=== PATIENT | female | born 1960 | race Caucasian/White ===

== ENCOUNTER → 2020-05-02 | Outpatient (CLI) | payer BC ==
--- NOTE | 2020-05-06 17:13 | RAD ---
BILATERAL SCREENING MAMMOGRAM, 3-D History: Routine screening. Comparison: 04/28/2017. Technique: MLO and CC digital tomosynthesis (3D) images obtained. Radiologist reviewed these images on dedicated workstation. Findings: Breast Tissue Density B : There are scattered areas of fibroglandular density. There are no dominant masses, suspicious microcalcifications, or architectural distortion. IMPRESSION: No mammographic evidence of malignancy. Recommend routine screening. BI-RADS category 1: Negative. The images were reviewed with computer-aided detection. Patient information is entered into reminder system with a target due date for the next screening mammogram. Mammography is the most sensitive method for finding small breast cancers, but it does not detect them all and is not a substitute for careful clinical examination. A negative mammogram does not negate a clinically suspicious finding and should not result in delay in biopsying a clinically suspicious abnormality. "Our facility is accredited by the [employer] Mammography Program." Electronically signed by: Molina Steve MD (05/06/2020 5:10 PM) [id number]
== END | disposition home or self-care (01) ==
LOC: MAMMO 15:42
PROVIDERS: ATTEND Specialist
DX: Z12.31 Encounter for screening mammogram for malignant neoplasm of breast (principal)
CPT/HCPCS: 77063; 77067

== ENCOUNTER → 2020-05-27 | Outpatient (CLI) | payer BC ==
[~2020-05-27] MED LIST: ATOR20TA58 PO; OMEP10CA4 PO
== END | disposition home or self-care (01) ==
LOC: LAB 16:08
PROVIDERS: ATTEND Nurse Anesthetist, Certified Registered
DX: Z01.818 Encounter for other preprocedural examination (principal); Z11.59 Encounter for screening for other viral diseases; Z12.11 Encounter for screening for malignant neoplasm of colon
CPT/HCPCS: 36415; U0003

== ENCOUNTER → 2020-05-30 | Day surgery (SDC) | payer BC ==
[~2020-05-30] MED LIST changes: +IPRATRPIUM/ALBUTEROL 0.5/2.5MG 3 ML NEBU. NEB PRN; +IV RINGERS SOLUTION,LACTATED 1,000 ML IV SCH; +MIDAZOLAM HCL PF 2 MG/2 ML VIAL. IV ONE; +ONDANSETRON PF 4 MG/2 ML VIAL. IV PRN; +PROPOFOL 10,000 MCG/ML (20ML) VIAL IV ONE
[2020-05-30 13:06] VITALS: BP 134/68
--- NOTE | 2020-06-03 18:06 | PATHOLOGY ---
[facility] Accession Number: [id number] . 01 Material submitted: . PART A: esophagus - DISTAL ESOPHAGUS. Modifiers: distal PART B: cecum - CECUM POLYP PART C: sigmoid colon - SIGMOID 2 SPECIMENS 1 HOT SNARE . 01 Clinical history: . Screening . 02 Diagnosis: A. 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 . B. Colon biopsies, cecal polyp: - Tubular adenoma. . C. Colon biopsies, sigmoid colon polyps: - Tubular adenoma. - Hyperplastic polyp. . (JPM:mmolman; 06/03/2020) [facility] 06/03/2020 1638 Local . 02 Comment: Sections of the distal esophageal biopsy reveal segments of hyperplastic squamous esophageal mucosa with contiguous columnar-lined mucosa showing moderate chronic inflammation and intestinal metaplasia with goblet cells consistent with Camarena's change. There is no dysplasia or evidence of malignancy. The hyperplastic squamous mucosa shows focally increased intraepithelial eosinophils. The differential diagnosis of esophagitis with increased eosinophils includes reflux esophagitis, "pill esophagitis", and eosinophilic esophagitis. Focally, there are up to 20-30 intraepithelial eosinophils per high power field. The latter finding is suggestive of eosinophilic esophagitis. . Sections of the cecal biopsy reveal a tubular adenoma showing no high grade dysplasia or evidence of malignancy. . Sections of the sigmoid colon biopsies reveal three segments of tubular adenoma and two segments of hyperplastic polyp. There is no high grade dysplasia or evidence of malignancy. . (JPM:mml; 06/03/2020) . 02 Electronically signed: . Nakul Calixto MD, Pathologist NPI- [id number] . 01 Gross description: . A. The specimen is received in formalin, labeled "José Chuck, distal esophagus". Received are two segments of pale palma soft tissue ranging in size from 0.3 to 0.5 cm in maximum dimensions. The specimen is submitted entirely in cassette A1. . B. The specimen is received in formalin, labeled "José Chuck, cecal polyp". Received are two segments of pale palma soft tissue ranging in size from 0.3 to 0.4 cm in maximum dimensions. The specimen is submitted entirely in cassette B1. . C. The specimen is received in formalin, labeled "José Chuck, sigmoid colon polyp x2". Received are five segments of pale palma soft tissue ranging in size from 0.3 to 0.4 cm in maximum dimensions. The specimen is submitted entirely in cassette C1. (CAA; 06/02/2020) QAC/QAC 06/02/2020 1621 Local . 02 Pathologist provided ICD-10: K22.70, D12.0, D12.5 . 02 CPT . 115303, 859972, 650630 Specimen Comment: A courtesy copy of this report has been sent to [phone], [phone] Specimen Comment: [id number] Specimen Comment: Report sent to / DR VELAZQUEZ Performed at: 01 [facility] [address], [place] [id number] MD Manuel Alberts MD Phone: [phone] Performed at: 02 [facility] [address] [place], [place] [id number] MD Nakul Calixto MD Phone: [phone]
== END | disposition home or self-care (01) ==
LOC: SURG 10:14
PROVIDERS: ATTEND Internal Medicine Gastroenterology
DX: Z12.11 Encounter for screening for malignant neoplasm of colon (principal); D12.0 Benign neoplasm of cecum; D12.5 Benign neoplasm of sigmoid colon; K63.89 Other specified diseases of intestine; K21.0 Gastro-esophageal reflux disease with esophagitis; K44.9 Diaphragmatic hernia without obstruction or gangrene; K22.2 Esophageal obstruction; Q39.9 Congenital malformation of esophagus, unspecified; E78.00 Pure hypercholesterolemia, unspecified; K22.8 Other specified diseases of esophagus; J45.909 Unspecified asthma, uncomplicated; F40.240 Claustrophobia; Z90.49 Acquired absence of other specified parts of digestive tract; Z79.899 Other long term (current) drug therapy; Z98.890 Other specified postprocedural states; Z90.710 Acquired absence of both cervix and uterus; Z88.8 Allergy status to other drugs, medicaments and biological substances
CPT/HCPCS: 43239; 45380; 45381; 45385; 88305; J2704; J7120

== ENCOUNTER 2021-02-22 13:42 | Emergency (ER) | payer BC ==
[~2021-02-22] VITALS: Ht 160 cm; Wt 95.0 kg
[2021-02-22 13:42] VITALS: BP 138/93
[~2021-02-22 13:42] MED LIST changes: -IPRATRPIUM/ALBUTEROL 0.5/2.5MG 3 ML NEBU. NEB PRN; -IV RINGERS SOLUTION,LACTATED 1,000 ML IV SCH; -MIDAZOLAM HCL PF 2 MG/2 ML VIAL. IV ONE; -ONDANSETRON PF 4 MG/2 ML VIAL. IV PRN; -PROPOFOL 10,000 MCG/ML (20ML) VIAL IV ONE
[2021-02-22] MEDS ORDERED: IV NORMAL SALINE 1,000ML 1,000 ML IV ONE (14:45)
[2021-02-22] MEDS ORDERED: ONDANSETRON PF 4 MG/2 ML VIAL. IVP ONE (14:45)
--- NOTE | 2021-02-22 15:12 | RAD ---
EXAM: CT Head without IV contrast CLINICAL HISTORY: dizziness COMPARISON: None. TECHNIQUE: Routine CT of the head without contrast. PQRS compliance statement - One or more of the following individualized dose reduction techniques wer e utilized for this study: 1. Automated exposure control 2. Adjustment of the mA and/or kV according to patient size 3. Use of iterative reconstruction technique FINDINGS: There is no evidence of hemorrhage, mass or extra-axial fluid collection. Son-white differentiation is maintained with no evidence of edema. There is no mass effect or shift of the intracranial structures. The ventricles, basilar cisterns and cortical sulci are normal in size and configuration for the mandeep ents stated age. The cerebellum and brainstem are unremarkable. The calvarium demonstrates no evidence of fracture or focal lesion. There is normal aeration of the visualized paranasal sinuses and mastoid air cells. The visualized portions of the orbits are normal. IMPRESSION: No evidence for acute intracranial process. Electronically signed by: Nico Reynolds MD (02/22/2021 3:09 PM) JA
--- NOTE | 2021-02-22 15:24 | RAD ---
Exam Date: 02/22/2021 2:49 PM XR CHEST 1V Indication: Reason: dizziness / Spl. Instructions: / History: FINDINGS/ IMPRESSION: Bibasilar scarring and/or atelectasis is seen. The cardiac silhouette and pulmonary vasculature are within normal limits. There is no pleural effusion or pneumothorax. Electronically signed by: Ra Mirza MD (02/22/2021 3:22 PM) [id number]
[2021-02-22 15:29] LABS: BASO # 0.1 x10^3/uL (0.0-0.2); BASO % 1 % (0-3); EOS % 0 % (0-3); HEMATOCRIT 43.2 % (36.0-47.0); HEMOGLOBIN 14.2 g/dL (12.0-15.5); LYMPH # 1.3 x10^3/uL (1.0-4.8); LYMPH % 15 % (24-48); MEAN CORPUSCULAR HEMOGLOBIN 28 pg (25-35); MEAN CORPUSCULAR HGB CONC 33 g/dL (31-37); MEAN CORPUSCULAR VOLUME 84 fL (79-100); MONO # 0.5 x10^3/uL (0.0-1.1); MONO % 5 % (0-9); NEUT # 7.1 x10^3uL (1.8-7.7); NEUT % 79 % (31-73); PLATELET COUNT 248 x10^3/uL (140-400); RED BLOOD COUNT 5.14 x10^6/uL (3.50-5.40); RED CELL DISTRIBUTION WIDTH 15.2 % (11.5-14.5)
[2021-02-22 15:41] LABS: CALCIUM 9.5 mg/dL (8.5-10.1); CREATININE 0.6 mg/dL (0.6-1.0); GFR 101.3; POTASSIUM 3.9 mmol/L (3.5-5.1)
--- NOTE | 2021-02-22 15:48 | EKG ---
[address] [address] Test Date: 2021-02-22 Test Time: 15:07:59 Pat Name: GISELE CLAUDIO Department: Room: Gender: F Medical Transcriptionist: PHILLY : 1960 Requested By: KSENIA BROOKS Order Number: [id number] Reading MD: Measurements Intervals Ayden Rate: 69 P: 52 RI: 202 QRS: 57 QRSD: 98 T: 38 QT: 384 QTc: 413 Interpretive Statements SINUS RHYTHM NORMAL ECG RI6.02 No previous ECG available for comparison
[2021-02-22 15:59] LABS: ALBUMIN 3.9 g/dL (3.4-5.0); ALBUMIN/GLOBULIN RATIO 0.9 (1.0-1.7); MAGNESIUM 2.1 mg/dL (1.8-2.4); TOTAL BILIRUBIN 0.4 mg/dL (0.2-1.0); TOTAL PROTEIN 8.3 g/dL (6.4-8.2)
[2021-02-22] MEDS ORDERED: MECL12.582 PO (17:47)
[2021-02-22] MEDS ORDERED: ONDA4TAB12 PO (17:47)
--- NOTE | 2021-02-22 17:47 | PHYS DOC ---
Past History Past Medical History: Asthma, Other Additional Past Medical Histor: vertigo Past Surgical History: Cholecystectomy, Hysterectomy Alcohol Use: None Adult General Chief Complaint Chief Complaint: DIZZY/LIGHT HEADED HPI HPI Patient is a 60-year-old female patient who presents to the ED today complaining of an episode of vertigo. Patient states she had dizziness and felt like furniture was spinning. This happened today prior to coming to the ED. She states symptoms subsided quickly. She states she has had similar symptoms a week ago. She states she also had an episode of nausea with the vertigo. Denies any vomiting. Currently denies dizziness. Review of Systems Review of Systems Constitutional: Denies fever or chills [] Eyes: Denies change in visual acuity, redness, or eye pain [] HENT: Denies nasal congestion or sore throat [] Respiratory: Denies cough or shortness of breath [] Cardiovascular: No additional information not addressed in HPI [] GI: Denies abdominal pain, nausea, vomiting, bloody stools or diarrhea [] : Denies dysuria or hematuria [] Musculoskeletal: Denies back pain or joint pain [] Integument: Denies rash or skin lesions [] Neurologic: Reports dizziness. Denies headache, focal weakness or sensory changes [] All other systems were reviewed and found to be within normal limits, except as documented in this note. Current Medications Current Medications Current Medications Medications (Trade) Dose Ordered Sig/[facility] Start Time Stop Time Status Last Admin Dose Admin Ondansetron HCl (Zofran) 4 mg 1X ONCE 02/22/21 14:45 02/22/21 14:49 DC 02/22/21 15:25 4 MG Sodium Chloride 1,000 ml @ 1,000 mls/hr 1X ONCE 02/22/21 14:45 02/22/21 15:44 DC 02/22/21 15:26 1,000 MLS/HR Allergies Allergies Allergies Coded Allergies Type Severity Reaction Last Updated Verified acetaminophen Allergy Unknown 05/26/20 Yes cephalexin Allergy Unknown 02/22/21 Yes metformin Allergy Unknown 02/22/21 Yes oxycodone Allergy Unknown 05/26/20 Yes Physical Exam Physical Exam Constitutional: Well developed, well nourished, no acute distress, non-toxic appearance. [] HENT: Normocephalic, atraumatic, bilateral external ears normal, oropharynx moist, no oral exudates, nose normal. [] Eyes: PERRLA, EOMI, conjunctiva normal, no discharge. [] Neck: Normal range of motion, no tenderness, supple, no stridor. [] Cardiovascular:Heart rate regular rhythm, no murmur [] Lungs & Thorax: Bilateral breath sounds clear to auscultation [] Abdomen: Bowel sounds normal, soft, no tenderness, no masses, no pulsatile masses. [] Skin: Warm, dry, no erythema, no rash. [] Back: No tenderness, no CVA tenderness. [] Extremities: No tenderness, no cyanosis, no clubbing, ROM intact, no edema. [] Neurologic: Alert and oriented X 3, normal motor function, normal sensory function, no focal deficits noted. Cranial nerves II through XII are intact Psychologic: Affect normal, judgement normal, mood normal. [] Current Patient Data Vital Signs Vital Signs Date Time Temp Pulse Resp B/P (MAP) Pulse Ox O2 Delivery O2 Flow Rate FiO2 02/22/21 13:42 97.9 74 16 138/93 (108) 96 Lab Results Laboratory Tests Test 02/22/21 15:09 White Blood Count 9.0 x10^3/uL (4.0-11.0) Red Blood Count 5.14 x10^6/uL (3.50-5.40) Hemoglobin 14.2 g/dL (12.0-15.5) Hematocrit 43.2 % (36.0-47.0) Mean Corpuscular Volume 84 fL (79-100) Mean Corpuscular Hemoglobin 28 pg (25-35) Mean Corpuscular Hemoglobin Concent 33 g/dL (31-37) Red Cell Distribution Width 15.2 % (11.5-14.5) H Platelet Count 248 x10^3/uL (140-400) Neutrophils (%) (Auto) 79 % (31-73) H Lymphocytes (%) (Auto) 15 % (24-48) L Monocytes (%) (Auto) 5 % (0-9) Eosinophils (%) (Auto) 0 % (0-3) Basophils (%) (Auto) 1 % (0-3) Neutrophils # (Auto) 7.1 x10^3uL (1.8-7.7) Lymphocytes # (Auto) 1.3 x10^3/uL (1.0-4.8) Monocytes # (Auto) 0.5 x10^3/uL (0.0-1.1) Eosinophils # (Auto) 0.0 x10^3/uL (0.0-0.7) Basophils # (Auto) 0.1 x10^3/uL (0.0-0.2) Sodium Level 141 mmol/L (136-145) Potassium Level 3.9 mmol/L (3.5-5.1) Chloride Level 103 mmol/L (98-107) Carbon Dioxide Level 27 mmol/L (21-32) Anion Gap 11 (6-14) Blood Urea Nitrogen 17 mg/dL (7-20) Creatinine 0.6 mg/dL (0.6-1.0) Estimated GFR (Cockcroft-Gault) 101.3 BUN/Creatinine Ratio 28 (6-20) H Glucose Level 140 mg/dL (70-99) H Calcium Level 9.5 mg/dL (8.5-10.1) Magnesium Level 2.1 mg/dL (1.8-2.4) Total Bilirubin 0.4 mg/dL (0.2-1.0) Aspartate Amino Transferase (AST) 19 U/L (15-37) Alanine Aminotransferase (ALT) 44 U/L (14-59) Alkaline Phosphatase 150 U/L (46-116) H Creatine Kinase 45 U/L (26-192) Creatine Kinase MB (Mass) 0.5 ng/mL (0.0-3.6) Creatine Kinase MB Relative Index 1.1 % (0-4) Troponin I Quantitative < 0.017 ng/mL (0-0.055) BH-Fpl-P-Type Natriuretic Peptide 41 pg/mL (0-124) Total Protein 8.3 g/dL (6.4-8.2) H Albumin 3.9 g/dL (3.4-5.0) Albumin/Globulin Ratio 0.9 (1.0-1.7) L Lipase 95 U/L (73-393) EKG EKG [address] sutton sinus rhythm HR 69 no STEMI[] Radiology/Procedures Radiology/Procedures []PROCEDURE: CT HEAD WO CONTRAST EXAM: CT Head without IV contrast CLINICAL HISTORY: dizziness COMPARISON: None. TECHNIQUE: Routine CT of the head without contrast. PQRS compliance statement - One or more of the following individualized dose reduction techniques were utilized for this study: 1. Automated exposure control 2. Adjustment of the mA and/or kV according to patient size 3. Use of iterative reconstruction technique FINDINGS: There is no evidence of hemorrhage, mass or extra-axial fluid collection. Son-white differentiation is maintained with no evidence of edema. There is no mass effect or shift of the intracranial structures. The ventricles, basilar cisterns and cortical sulci are normal in size and configuration for the patients stated age. The cerebellum and brainstem are unremarkable. The calvarium demonstrates no evidence of fracture or focal lesion. There is normal aeration of the visualized paranasal sinuses and mastoid air cells. The visualized portions of the orbits are normal. IMPRESSION: No evidence for acute intracranial process. Electronically signed by: Nico Hensley MD (02/22/2021 3:09 PM) [facility] DICTATED AND SIGNED BY: NICO HENSLEY MD DATE: 02/22/21 1508 CC: STAR VELAZQUEZ MD; KSENIA BROOKS APRN ~MTH0 0 PROCEDURE: PORTABLE CHEST 1V Exam Date: 02/22/2021 2:49 PM XR CHEST 1V Indication: Reason: dizziness / Spl. Instructions: / History: FINDINGS/ IMPRESSION: Bibasilar scarring and/or atelectasis is seen. The cardiac silhouette and pulmonary vasculature are within normal limits. There is no pleural effusion or pneumothorax. Electronically signed by: Janna Mirza MD (02/22/2021 3:22 PM) [id number] DICTATED AND SIGNED BY: JANNA MIRZA MD DATE: 02/22/21 1521 CC: STAR VELAZQUEZ MD; KSENIA BROOKS APRN ~MTH0 0 Heart Score C/O Chest Pain: N/A Risk Factors: Risk Factors: DM, Current or recent (<one month) smoker, HTN, HLP, family history of CAD, obesity. Risk Scores: Risk Factors: DM, Current or recent (<one month) smoker, HTN, HLP, family history of CAD, obesity. Course & Med Decision Making Course & Med Decision Making Pertinent Labs and Imaging studies reviewed. (See chart for details) This is a 60-year-old female patient presented to the ED today with symptoms consistent of body ago. CT of the head is negative, EKG is negative, labs are negative. Patient was given IV fluids Zofran and is feeling better. Discharge on meclizine and Zofran. Follow-up with PCP in the course of this week Prachi Disclaimer Prachi Disclaimer This electronic medical record was generated, in whole or in part, using a voice recognition dictation system. Departure Departure: Impression: Primary Impression: Vertigo Disposition: HOME / SELF CARE / HOMELESS Condition: STABLE Referrals: STAR VELAZQUEZ MD (PCP) follow up with your doctor in the course of this week Patient Instructions: Vertigo, [id number] Additional Instructions: You were seen for symptoms consistent with vertigo. Change positions slowly. Please follow-up with your primary care doctor in the course of this week. Take meclizine and Zofran as needed Scripts Meclizine Hcl (MECLIZINE HCL) 12.5 Mg Tablet 1 TAB PO TID PRN for DIZZINESS, #90 TAB Prov: KSENIA BROOKS APRN 02/22/21 Ondansetron (ONDANSETRON ODT) 4 Mg Tab.rapdis 1 TAB PO PRN Q6-8HRS, #16 TAB Prov: KSENIA BROOKS APRN 02/22/21 KSENIA BROOKS APRN February 22, 2021 17:47
[2021-02-22 18:21] LABS: AMPHETAMINE/METHAMPHETAMINE NEG (NEG); BARBITURATES NEG (NEG); BENZODIAZEPINES NEG (NEG); CANNABINOIDS NEG (NEG); COCAINE NEG (NEG); METHADONE NEG (NEG); OPIATES NEG (NEG); PHENCYCLIDINE NEG (NEG)
== END 2021-02-22 17:58 | disposition home or self-care (01) ==
LOC: ER 13:42
DX: R42 Dizziness and giddiness (principal); R11.0 Nausea; J45.909 Unspecified asthma, uncomplicated; Z88.1 Allergy status to other antibiotic agents; Z88.5 Allergy status to narcotic agent; Z88.8 Allergy status to other drugs, medicaments and biological substances
CPT/HCPCS: 36415; 70450; 71045; 80053; 80307; 82553; 83690; 83735; 83880; 84443; 84484; 85025; 93005; 96361; 96374; 99285; J2405; J7030

== ENCOUNTER → 2021-10-06 | Outpatient (CLI) | payer OTHER ==
[~2021-10-06] MED LIST changes: +IOHEXOL 300 MG/ML 75 ML VIAL. IV ONE; +MECL12.582 PO; +ONDA4TAB12 PO
--- NOTE | 2021-10-06 14:47 | RAD ---
CT ABDOMEN+PELVIS W History: Abdomen tenderness from medication. Comparison: None. Technique: CT abdomen and pelvis with intravenous contrast Findings: The lung bases are clear. Postsurgical changes from cholecystectomy. The liver, pancreas, and spleen are unremarkable. There is a 2.2 cm hypodense mass in the left adrenal gland which is indeterminate o n single phase imaging. Subcentimeter right renal hypodensity too small to characterize likely cyst. No hydronephrosis or nephrolithiasis. The bladder is unremarkable. The uterus is surgically absent. N o pelvic masses. Small sliding hiatal hernia. There is a 1.2 cm medication tablet within the small bowel in the midabd omen. No evidence of obstruction. The appendix is surgically absent. The colon is relatively decompre ssed without pericolonic inflammatory change. No abdominopelvic free fluid or free air. Vasculature i s within normal limits. No adenopathy. Soft tissues are unremarkable. Degenerative changes of the lum bar spine with mild anterolisthesis of L4 on L5. No acute osseous abnormality. Impression: 1. Small sliding hiatal hernia. 2. Medication tablet measuring 1.2 cm within a small bowel loop in the midabdomen without evidence o f obstruction. 3. Left adrenal nodule measuring 2.2 cm, indeterminate by single phase CT. This most likely represent s an adrenal adenoma, recommend MRI or CT adrenal protocol for complete characterization. ------ Exposure: One or more of the following individualized dose reduction techniques were utilized for thi s examination: 1. Automated exposure control 2. Adjustment of the mA and/or kV according to patient size 3. Use of iterative reconstruction technique. Electronically signed by: Candido Lopez MD (10/06/2021 2:45 PM) [id number]
== END ==
LOC: RAD 13:24
PROVIDERS: ATTEND Specialist
DX: K44.9 Diaphragmatic hernia without obstruction or gangrene (principal); E27.8 Other specified disorders of adrenal gland; R19.5 Other fecal abnormalities; M47.816 Spondylosis without myelopathy or radiculopathy, lumbar region; M43.16 Spondylolisthesis, lumbar region; Z90.49 Acquired absence of other specified parts of digestive tract; Z90.710 Acquired absence of both cervix and uterus
CPT/HCPCS: 74177; Q9967